=== PATIENT | male | born 1950 ===

== ENCOUNTER 2017-07-31 08:36 | Day surgery (SDC) | payer OTHER | END 2017-07-31 14:20 | disposition home or self-care (01) | LOC: AMB-ENDOS 08:36 | DX: D12.2 Benign neoplasm of ascending colon (principal); K64.4 Residual hemorrhoidal skin tags ==

== ENCOUNTER 2019-03-18 06:22 | Day surgery (SDC) | payer OTHER | END 2019-03-18 13:20 | disposition home or self-care (01) | LOC: AMB-ENDOS 06:22 | DX: D12.2 Benign neoplasm of ascending colon (principal) ==